=== PATIENT | male | born 1960 | race Caucasian/White ===

== ENCOUNTER → 2023-12-25 10:41 | Outpatient (REF) | payer OTHER, SELFPAY | LOC: RAD 10:41 | PROVIDERS: ATTENDING PHYSICIAN Specialist; FAMILY PHYSICIAN Nurse Practitioner Family | DX: N20.0 Calculus of kidney (principal) | CPT/HCPCS: 74018 ==

== ENCOUNTER → 2025-01-10 10:07 | Outpatient (REF) | payer OTHER, SELFPAY | LOC: RAD 10:07 | PROVIDERS: ATTENDING PHYSICIAN Specialist; FAMILY PHYSICIAN Nurse Practitioner Family | DX: N20.0 Calculus of kidney (principal) | CPT/HCPCS: 74018 ==

== ENCOUNTER 2025-03-21 17:31 | Emergency (ER) | payer OTHER, SELFPAY ==
[2025-03-21 17:41] VITALS: BP 183/100
[2025-03-21 17:44] VITALS: BP 175/94
[2025-03-21 18:04] LABS: Urine Character Clear (Clear)
[2025-03-21 18:07] LABS: Hematocrit 49.4 % (39.0-52.0); Hemoglobin 16.5 g/dL (13.0-18.0); Mean Corp Hgb Conc. 33.4 g/dL (33.0-37.0); Mean Corpuscular Volume 87.3 fL (80.0-94.0); Nucleated Red Blood Cells % 0 % (-); Platelet Count 232 10^3/uL (130-400); Red Cell Dist. Width 12.6 % (11.5-14.5)
[2025-03-21 18:15] LABS: ALT (SGPT) 32 U/L (0-50); AST (SGOT) 28 U/L (17-59); Albumin 4.4 g/dl (3.5-5.0); Alkaline Phosphatase 93 U/L (38-126); Blood Urea Nitrogen 25 mg/dl (9-20); Calcium 9.9 mg/dl (8.4-10.2); Carbon Dioxide 25 mmol/L (22-30); Chloride 104 mmol/L (98-107); Glucose 104 mg/dl (70-99); Lipase 130 U/L (23-300); Potassium 5.0 mmol/L (3.5-5.1); Sodium 136 mmol/L (135-145); Total Protein 7.1 g/dl (6.3-8.2); eGFR > 60.00
[2025-03-21 18:16] LABS: Urine Squamous Cell 0-2 /LPF (Few)
[2025-03-21 18:17] LABS: Urine White Cell 0-2 /HPF (0-5)
[2025-03-21 20:34] VITALS: BMI 34.6
[2025-03-21 20:35] VITALS: BP 170/87
--- NOTE | 2025-03-21 20:38 | ED.GENMED ---
History of Present Illness
<Evelina Melo PA-C - Last Filed: 03/21/25 22:50>
General
Chief Complaint: Abdominal Pain
Source: patient
Exam Limitations: none
Time Seen by Provider: 03/21/25 20:16
History of Present Illness
History of Present Illness:
64yoM with a history of coronary artery disease s/p PCI, hypertension, hyperlipidemia, kidney stones, and GERD presenting for evaluation of. Symptoms initially began 2 days ago while he was out to dinner with his friends. He reports a severe
cramping pain throughout his upper abdomen which radiated to the back. Pain eventually subsided and he felt normal yesterday other than noticing some reddish urine in the toilet. Symptoms recurred around 3 PM this afternoon. This occurred about 3
hours after eating pizza for lunch. Pain has improved but he continues to have a dull discomfort in the area. He had some nausea earlier but did not vomit. No chest pain, shortness of breath, fevers, constipation, diarrhea. He has a history of
kidney stones which have required surgery before but he has never had to come to the ED for these symptoms. He follows with Dr. Cornell.
Past History
<Evelina Melo PA-C - Last Filed: 03/21/25 22:50>
Past History
ED Past Medical History: CAD, HTN and Hypercholesterolemia
Social History
Tobacco: Non-smoker
Alcohol: None
Personal:
Living: with family
Employment: Employed (works from home)
Family History
Family History: Negative Diabetes, Hypertension or CAD
Phy Exam
<Evelina Melo PA-C - Last Filed: 03/21/25 22:50>
General Physical Exam
General Presentation: well appearing and no apparent distress
General Skin: warm and dry
General Habitus: normal and elderly
General Mental: alert
ENT Exam
ENT Exam: normocephalic
Cardiovascular Exam
Cardiovascular Exam: regular rate/rhythm
Pulmonary Exam
Pulmonary Exam: lungs clear, no respiratory distress, no rales, no crackles, no rhonchi and no wheezing
Gastrointestinal Exam
Gastrointestinal Exam: soft, non distended, no cva tenderness and other (+RUQ tenderness)
Neurological Exam
Neurological Exam: alert
Charles Coma Scale
Eye Opening: Spontaneous
Verbal Response: Oriented
Motor Response: Obeys Commands
GCS Total Score: 15
Skin Exam
Skin Exam: normal color and warm/dry
Psychiatric Exam
Psychiatric Exam: normal mood/affect
<Darrel Ceron PA-C - Last Filed: 03/21/25 23:15>
Charles Coma Scale
GCS Total Score: 15
Course
<Evelina Melo PA-C - Last Filed: 03/21/25 22:50>
Orders/Labs/Results
Orders:
Orders
03/21/25 17:45
IV Insert/Care/Rem.- Treatment PRN
03/21/25 17:53
Complete Blood Count/With Diff Urgent
Comprehensive Metabolic Panel Urgent
Lipase Urgent
Urinalysis Reflex To Culture Urgent
Date Specimen was Collected: 03/21/25
Time Specimen was Collected: 17:45
Urine Microscopic Reflex Cult Urgent
03/21/25 19:57
CT Abd/pelvis Wo Iv Cont Urgent
Comment: patient in [place]
Reason For Exam: right flank pain R/O kidney stone
03/21/25 20:36
Ketorolac [Toradol] 15 mg IV NOW STA
US Abdomen Complete/Upper Urgent
Comment:
Reason For Exam: RUQ pain
03/21/25 20:48
Acetaminophen [Tylenol] 1,000 mg PO NOW STA
Abnormal Lab Results
03/21/25
17:53
WBC 13.9 H 10^3/uL
(4.8-10.8)
Absolute Neuts (auto) 11.3 H 10^3/uL
(1.4-6.5)
Absolute Monos (auto) 1.0 H 10^3/uL
(0.1-0.6)
Neutrophils % 81.2 H %
(42.2-75.2)
Lymphocytes % 10.1 L %
(20.5-51.1)
BUN 25 H mg/dl
(9-20)
Glucose 104 H mg/dl
(70-99)
Ur Occult Blood Reflex 3+ A
(Negative)
Urine RBC 7-10 A /HPF
(0-2)
Urine Bacteria (Reflex) Few A
(Negative)
03/21/25 17:53
03/21/25 17:53
Vital Signs
Initial and Last Documented VS:
Initial Vital Signs
Temp Pulse Resp BP Pulse Ox
98.4 F 77 18 183/100 97
03/21/25 17:41 03/21/25 17:41 03/21/25 17:41 03/21/25 17:41 03/21/25 17:41
Last Documented Vital Signs
Temp Pulse Resp BP Pulse Ox
98.4 F 70 18 170/87 99
03/21/25 17:41 03/21/25 22:15 03/21/25 17:41 03/21/25 20:35 03/21/25 22:15
<Darrel Ceron PA-C - Last Filed: 03/21/25 23:15>
Orders/Labs/Results
Orders:
Orders
03/21/25 17:45
IV Insert/Care/Rem.- Treatment PRN
03/21/25 17:53
Complete Blood Count/With Diff Urgent
Comprehensive Metabolic Panel Urgent
Lipase Urgent
Urinalysis Reflex To Culture Urgent
Date Specimen was Collected: 03/21/25
Time Specimen was Collected: 17:45
Urine Microscopic Reflex Cult Urgent
03/21/25 19:57
CT Abd/pelvis Wo Iv Cont Urgent
Comment: patient in [place]
Reason For Exam: right flank pain R/O kidney stone
03/21/25 20:36
Ketorolac [Toradol] 15 mg IV NOW STA
US Abdomen Complete/Upper Urgent
Comment:
Reason For Exam: RUQ pain
03/21/25 20:48
Acetaminophen [Tylenol] 1,000 mg PO NOW STA
Abnormal Lab Results
03/21/25
17:53
WBC 13.9 H 10^3/uL
(4.8-10.8)
Absolute Neuts (auto) 11.3 H 10^3/uL
(1.4-6.5)
Absolute Monos (auto) 1.0 H 10^3/uL
(0.1-0.6)
Neutrophils % 81.2 H %
(42.2-75.2)
Lymphocytes % 10.1 L %
(20.5-51.1)
BUN 25 H mg/dl
(9-20)
Glucose 104 H mg/dl
(70-99)
Ur Occult Blood Reflex 3+ A
(Negative)
Urine RBC 7-10 A /HPF
(0-2)
Urine Bacteria (Reflex) Few A
(Negative)
03/21/25 17:53
03/21/25 17:53
Vital Signs
Initial and Last Documented VS:
Initial Vital Signs
Temp Pulse Resp BP Pulse Ox
98.4 F 77 18 183/100 97
03/21/25 17:41 03/21/25 17:41 03/21/25 17:41 03/21/25 17:41 03/21/25 17:41
Last Documented Vital Signs
Temp Pulse Resp BP Pulse Ox
98.4 F 70 18 170/87 99
03/21/25 17:41 03/21/25 22:15 03/21/25 17:41 03/21/25 20:35 03/21/25 22:15
<Evelina Melo PA-C - Last Filed: 03/21/25 22:50>
MDM/Problems Addressed
Differential Diagnosis Includes:
64yoM here with upper abd pain radiating to back. Intermittent x 2 days. Currently mild dull pain. Hx of kidney stones. He is hypertensive with otherwise stable vitals. RUQ tenderness on abdominal exam. Differential diagnosis includes: kidney stone,
biliary colic, cholecystitis
Initial ED plan: Workup initiated in triage. Labs show a leukocytosis with a WBC of 13.9. Renal function, LFTs, lipase normal. UA with 3+ blood but no signs of infection. Will check upper abdominal ultrasound and CT abdomen without contrast. Patient
declines IV pain medication and Tylenol ordered.
Final assessment: Ultrasound negative for cholelithiasis. Case signed out to Ajit Ceron PA-C pending CT results. Patient appears comfortable on reassessment with pain radiated as a 2/10 in severity.
<Evelina Melo PA-C - Last Filed: 03/21/25 22:50>
*Pulse Oximetry
SaO2: 97
Oxygen Mode of Delivery: Room air
Patient hypoxic: no
*Critical Care Note
Total Time (30-74mins, 75-104mins- exclusive of procedures): Not Applicable
<Darrel Ceron PA-C - Last Filed: 03/21/25 23:15>
Update Note
Update Note:
Patient remained comfortable in the ED, will be discharged with expectant management for 2 small proximal right ureteral stones. He has previous established with outpatient urology for follow-up care. Will start him on Flomax and recommend NSAIDs.
Urinalysis not consistent with UTI, no role for antibiotics
ED Attending Note
<Evelina Melo PA-C - Last Filed: 03/21/25 22:50>
-
Portions of this chart may have been created with voice recognition software.� Occasional wrong word or��sound alike� substitutions may have occurred due to the inherent limitations of voice recognition software.
Discharge Plan
Departure
Patient Disposition: Home (Routine Discharge)
Date of Disposition: 03/21/25
Time of Disposition: 22:22
Patient with high blood pressure during this ER visit?: No
Discharge Problem:
Ureterolithiasis
Instructions: Kidney Stones (DC)
Prescriptions:
New
tamsulosin 0.4 mg capsule
0.4 mg PO DAILY Qty: 20 0RF
No Action
lorazepam 0.5 MG tablet
0.5 mg PO DAILYPRN PRN (Reason: anxiety)
atorvastatin 40 MG tablet
40 mg PO QPM Qty: 90 3RF
pantoprazole 40 MG tablet,delayed release (DR/EC)
40 mg PO DAILY Qty: 90 3RF
aspirin 81 MG tablet,chewable
81 mg PO DAILY 0RF
nitroglycerin 0.4 MG tablet, sublingual
0.4 mg sublingual [id number] PRN (Reason: chest pain) Qty: 25 2RF
Rx Instructions:
DO NOT TAKE within 24 hours of taking cialis
tadalafil [Cialis] 10 MG tablet
10 mg PO DAILYPRN PRN (Reason: ED) Qty: 0 0RF
Rx Instructions:
HOLD cialis- do not take for 2 weeks. Do not take within 24 hours of any nitroglycerin.
carvedilol 6.25 MG tablet
6.25 mg PO BID Qty: 180 3RF
lisinopril 10 MG tablet
10 mg PO DAILY
tamsulosin 0.4 MG capsule
0.4 mg PO DAILY Qty: 14 0RF
phenazopyridine 100 MG tablet
100 mg PO BID Qty: 30 0RF
tramadol 50 MG tablet
50 mg PO Q8HPRN PRN (Reason: pain) Qty: 25 0RF
Referrals:
NONE,* [Active, Internal Medicine]
Activity Restrictions/Additional Instructions:
Follow-up with your urologist if symptoms persist
Interventions
Interventions:
*General Assessment Last Done: 03/21/25 20:34
*Neglect/Abuse Screening Last Done: 03/21/25 20:34
*ED COVID-19 Vaccine History Last Done: 03/21/25 17:41
*ED Influenza Vaccine History Last Done: 03/21/25 17:41
[facility] Fall Risk Assessment Tool Last Done: 03/21/25 20:34
*Risk Screen - Suicide (C-SSRS) Last Done: 03/21/25 17:41
*Nursing Disposition Last Done: 03/21/25 22:15
DN-Gohrsw-Lrnbcnibpk Assessment Last Done: 03/21/25 20:34
Discharge Date and Time
Discharge Date/Time: 03/21/25 22:15
Print Language: PRYDEINIG
[2025-03-21] MEDS: TYLENOL 1000 MG PO (21:55)
== END 2025-03-21 22:15 | disposition home or self-care (01) ==
LOC: EMR 17:31
PROVIDERS: Emergency Medicine; EMERGENCY PHYSICIAN Emergency Medicine; FAMILY PHYSICIAN Nurse Practitioner Family
DX: N20.2 Calculus of kidney with calculus of ureter (principal); I10 Essential (primary) hypertension; E78.00 Pure hypercholesterolemia, unspecified; I25.10 Atherosclerotic heart disease of native coronary artery without angina pectoris; K21.9 Gastro-esophageal reflux disease without esophagitis; Z87.442 Personal history of urinary calculi
CPT/HCPCS: 99284; 74176; 76700; 80053; 81003; 81015; 83690; 85025